=== PATIENT | male | born 1935 | race Caucasian/White ===

== ENCOUNTER 2017-01-11 12:15 | Emergency (ER) | payer OTHER ==
[~2017-01-11] VITALS: Ht 177.8 cm; Wt 91.2 kg
[~2017-01-11 12:15] MED LIST: AMLO-110 PO; ASPI-435 PO; CARB25TA12 PO; FURO-85 PO; HMLI SC; INSUINJ12 SC; ISOS60TA25 PO; MAGN400T6 PO; METO50TA7 PO; WARF4TAB PO
[2017-01-11 12:20] VITALS: TEMP 36.8; Ht 177.8 cm; Wt 91.2 kg
[2017-01-11] MEDS ORDERED: ACETAMINOPHEN 500 MG TAB PO STA (12:35)
--- NOTE | 2017-01-11 12:37 | EMERGENCY ROOM VISIT NOTE ---
History Report prepared by Zach: Eve Sun Under the Supervision of: Dr. Aneudy Mortensen M.D. First contact with patient: 12:27 Chief Complaint: HEAD PAIN Stated Complaint: SEVERE HEADACHE/DIZZY History of Present Illness The patient is an 81 year old male who presents to the Emergency Room with complaints of a persistent headache that started when he woke up this morning. He is accompanied by his son. The patient admits to tinnitus and reports he woke up feeling dizzy. He has experienced tinnitus for "years" and notes it keeps him awake at night. The headache is located "all over" his head and he rates his pain as an 8/10. He thought perhaps the headache was cardiac related, so he took 1 Nitroglycerin, but it provided no relief. He denies any changes in vision. He denies any recent fevers or chills. The patient admits to a constant tremor in his left face and right arm due to a history of Parkinson's and states they are unchanged. He denies any recent difficulty ambulating or increased weakness. He denies any abdominal pain or pain or swelling in his legs. The patient is on daily blood thinners. Source of History: patient Onset: Earlier this morning Position: head Symptom Intensity: 8/10 Timing: other (persistent) Modifying Factors (Relieving): other (Nitroglycerin provided no relief) Associated Symptoms: No abdominal pain, No chills, No fevers, No weakness Review of Systems All systems have been listed, reviewed, and are negative other than those previously mentioned. Please see Additional Medical History Sheet. Past Medical & Surgical Medical Problems: (1) Diabetes mellitus (2) Heart disease (3) Hypertension (4) Parkinson's disease Surgical Problems: (1) History of cholecystectomy Family History Diabetes mellitus Heart disease Hypertension Social History Smoking Status: Never Smoker Alcohol Use: occasionally Drug Use: none Marital Status: Housing Status: lives with family Occupation Status: retired Current/Historical Medications Scheduled Amlodipine (Norvasc), 5 MG PO DAILY Aspirin (Aspirin 81), 81 MG PO DAILY Carbidopa/Levodopa (Sinemet 25MG/100MG), 1.5 TAB PO QID Furosemide (Lasix), 10 MG PO QAM Insulin Detemir (Levemir Flextouch), 22 UNITS SC HS Insulin Lispro (Human) (Humalog), 10 UNITS SC UD Isosorbide Mononitrate Ext Rel (Imdur Ext Rel), 120 MG PO QAM Magnesium Oxide (Mag-Ox), 400 MG PO DAILY Metoprolol Succ (Toprol Xl) (Toprol-Xl), 50 MG PO QAM Nitroglycerin (Nitrostat), 0.4 MG UT PRN Polyethylene Glycol 3350 (Miralax), 17 GM PO UD Triamcinolone Acet (Triamcinolone Acetonide), 1 APPLN TOP BID Warfarin Sodium (Coumadin), 1 TAB PO 4XWK Warfarin Sodium (Coumadin), 6 MG PO MWF Scheduled PRN Oxycodone Immediate Rel Tab (Roxicodone Ir), 1 TAB PO Q4H PRN for Severe Pain Allergies Coded Allergies: PETER Inhibitors (Verified Allergy, Unknown, UNK, 01/11/17) Physical Exam Vital Signs Date Time Temp Pulse Resp B/P Pulse Ox O2 Delivery O2 Flow Rate FiO2 01/11/17 15:53 60 12 132/72 93 01/11/17 15:00 60 01/11/17 14:55 93 Room Air 01/11/17 14:54 63 18 138/80 94 Room Air 01/11/17 12:20 36.8 66 22 132/80 93 Room Air Physical Exam GENERAL: Patient awake, alert, oriented x 3. Patient follows commands. Patient does not appear toxic. Patient is adequately hydrated and well- nourished. SKIN: No erythema, pallor, cyanosis or rash HEENT: Normal head, pupils equal, reactive to light and accommodation. Ears normal. Oral cavity and posterior pharynx appear normal. Neck: Scar on base of neck. Without adenopathy, no neck vein distention. LUNGS: Clear to auscultation. No wheezes, no rales, no rhonchi. HEART: No murmurs. No gallops. No rubs ABDOMEN: Vertical scar right sided abdomen from prior cholecystectomy. No masses, no rebound, no hepatomegaly or splenomegaly. EXTREMITIES: No signs of trauma. No pedal or pretibial edema. No calf or thigh tenderness. NEUROLOGIC: Left facial tremor. Resting tremor in right arm. Cranial nerves II -XII within normal limits. Medical Decision & Procedures ER Provider Diagnostic Interpretation: This X-Ray was reviewed and interpreted by myself and the radiologist. CHEST 2 VIEWS ROUTINE IMPRESSION: No acute cardiopulmonary findings. Electronically signed by: Corbin Vasquez M.D. 01/11/2017 2:[address] scan was reviewed and interpreted by the radiologist and reviewed by myself. CT OF THE HEAD WITHOUT CONTRAST IMPRESSION: No acute intracranial findings. Electronically signed by: Corbin Vasquez M.D. 01/11/2017 2:04 PM Laboratory Results 01/11/17 12:57 Red Blood Count 4.80, Mean Corpuscular Volume 87.3, Mean Corpuscular Hemoglobin 31.5, Mean Corpuscular Hemoglobin Concent 36.0, Mean Platelet Volume 9.9, Neutrophils (%) (Auto) 47.2, Lymphocytes (%) (Auto) 39.2, Monocytes (%) (Auto) 7.7, Eosinophils (%) (Auto) 4.7, Basophils (%) (Auto) 1.0, Neutrophils # (Auto) 1.90, Lymphocytes # (Auto) 1.58, Monocytes # (Auto) 0.31, Eosinophils # (Auto) 0.19, Basophils # (Auto) 0.04 01/11/17 12:57 Test 01/11/17 12:57 White Blood Count 4.03 K/uL (4.8-10.8) Red Blood Count 4.80 M/uL (4.7-6.1) Hemoglobin 15.1 g/dL (14.0-18.0) Hematocrit 41.9 % (42-52) Mean Corpuscular Volume 87.3 fL (80-100) Mean Corpuscular Hemoglobin 31.5 pg (25-34) Mean Corpuscular Hemoglobin Concent 36.0 g/dl (32-36) Platelet Count 142 K/uL (130-400) Mean Platelet Volume 9.9 fL (7.4-10.4) Neutrophils (%) (Auto) 47.2 % Lymphocytes (%) (Auto) 39.2 % Monocytes (%) (Auto) 7.7 % Eosinophils (%) (Auto) 4.7 % Basophils (%) (Auto) 1.0 % Neutrophils # (Auto) 1.90 K/uL (1.4-6.5) Lymphocytes # (Auto) 1.58 K/uL (1.2-3.4) Monocytes # (Auto) 0.31 K/uL (0.11-0.59) Eosinophils # (Auto) 0.19 K/uL (0-0.5) Basophils # (Auto) 0.04 K/uL (0-0.2) RDW Standard Deviation 41.2 fL (36.4-46.3) RDW Coefficient of Variation 12.8 % (11.5-14.5) Immature Granulocyte % (Auto) 0.2 % Immature Granulocyte # (Auto) 0.01 K/uL (0.00-0.02) Prothrombin Time 27.7 SECONDS (9.0-12.0) Prothromb Time International Ratio 2.5 (0.9-1.1) Anion Gap 7.0 mmol/L (3-11) Est Creatinine Clear Calc Drug Dose 71.9 ml/min Estimated GFR () 91.9 Estimated GFR (Non- 79.3 BUN/Creatinine Ratio 19.8 (10-20) Calcium Level 8.3 mg/dl (8.5-10.1) Total Bilirubin 0.4 mg/dl (0.2-1) Aspartate Amino Transf (AST/SGOT) 15 U/L (15-37) Alanine Aminotransferase (ALT/SGPT) 7 U/L (12-78) Alkaline Phosphatase 80 U/L (45-117) Total Protein 6.9 gm/dl (6.4-8.2) Albumin 3.1 gm/dl (3.4-5.0) Globulin 3.8 gm/dl (2.5-4.0) Albumin/Globulin Ratio 0.8 (0.9-2) Laboratory results as stated above per my review. Medications Administered Medications (Trade) Dose Ordered Sig/Jeremy Route Start Time Stop Time Status Last Admin Dose Admin Acetaminophen (Tylenol Tab) 1,000 mg NOW STAT PO 01/11/17 12:35 01/11/17 12:39 DC 01/11/17 13:16 1,000 MG Oxycodone HCl (Roxicodone Immediate Rel Tab) 5 mg NOW STAT PO 01/11/17 15:16 01/11/17 15:18 DC 01/11/17 15:33 5 MG ECG Indication: weakness Rate (beats per minute): 60 Rhythm: other (Atrial paced rhythm) Findings: no acute ischemic change, no ectopy ED Course 1230: Past medical records reviewed. The patient was evaluated in room C11. A complete history and physical examination was performed. 1235: Acetaminophen 1000 mg PO. 1516: Oxycodone HCl 5 mg PO. 1520: I reevaluated the patient. He is feeling well and resting comfortably. I discussed his results and discharge instructions and he verbalized complete understanding and agreement. Medical Decision The differential diagnoses considered include: TIA/CVA, subarachnoid bleed, migraine, tension, cluster or sinus headache, Meniere's disease, labyrinthitis, benign positional vertigo. Multiple labs, EKG and imaging were obtained. The patient has no evidence of meningitis or hemorrhagic stroke. Clinically he does not have stroke like symptoms. The patient has no evidence of infection. I do not think he has meningitis. The patient does have some tinnitus which is old. He has a headache which did improve with Tylenol. Near the end of his stay he said the headache was coming back. He was given 1 OxyIR. I believe the patient can safely return home. [place] Drug Monitoring Program Search Results: no issues identified Impression Primary Impression: Dizziness Additional Impressions: Headache Parkinson's disease Scribe Attestation The scribe's documentation has been prepared under my direction and personally reviewed by me in its entirety. I confirm that the note above accurately reflects all work, treatment, procedures, and medical decision making performed by me. Departure Information Dispostion Home / Self-Care Prescriptions Oxycodone Immediate Rel Tab (ROXICODONE IR) 5 Mg Tab 1 TAB PO Q4H Y for Severe Pain, #10 TAB Prov: Aneudy Mortensen M.D. 01/11/17 Referrals Emmanuel Aj (PCP) Patient Instructions My [facility] Additional Instructions 1 OxyIR every 4-6 hours as needed for moderate to severe headache. Do not drive or operate any machinery while taking OxyIR. Follow-up with your family physician this week. Return here sooner if your headache is getting worse. Problem Qualifiers
[2017-01-11 13:07] LABS: BASO ABS # 0.04 K/uL (0-0.2); COMPLETE YES; EOS % 4.7 %; HEMATOCRIT 41.9 % (42-52); IG% 0.2 %; LYMPH % 39.2 %; LYMPH ABS # 1.58 K/uL (1.2-3.4); MEAN CELL VOLUME 87.3 fL (80-100); MEAN CORPUSCULAR HEMOGLOBIN 31.5 pg (25-34); MEAN PLATELET VOLUME 9.9 fL (7.4-10.4); MONO % 7.7 %; NEUT % 47.2 %; PLATELET COUNT 142 K/uL (130-400); WHITE BLOOD COUNT 4.03 K/uL (4.8-10.8)
[2017-01-11 13:17] LABS: INR 2.5 (0.9-1.1); PROTHROMBIN TIME (PATIENT) 27.7 SECONDS (9.0-12.0)
[2017-01-11 13:23] LABS: BUN/CREATININE RATIO 19.8 (10-20); CALCIUM 8.3 mg/dl (8.5-10.1); CREATININE 0.9 mg/dl (0.60-1.40); POTASSIUM 3.9 mmol/L (3.5-5.1)
[2017-01-11 13:26] LABS: ALB/GLOB RATIO 0.8 (0.9-2)
[2017-01-11] MEDS ORDERED: INSU100I SC (13:27)
[2017-01-11] MEDS ORDERED: NITR0.4S UT (13:27)
[2017-01-11] MEDS ORDERED: ISOS120T5 PO (13:27)
[2017-01-11] MEDS ORDERED: POLY335019 PO (13:27)
[2017-01-11] MEDS ORDERED: TRMCR515 TOP (13:27)
[2017-01-11] MEDS ORDERED: INSU3INJ3 SC (13:27)
--- NOTE | 2017-01-11 14:05 | DIAGNOSTIC IMAGING REPORT ---
CT OF THE HEAD WITHOUT CONTRAST CLINICAL HISTORY: Headache. COMPARISON STUDY: No previous studies for comparison. CT DOSE: 884.08 mGy.cm TECHNIQUE: Helical axial images of the head were obtained without IV contrast. Automated exposure control was utilized for the study. FINDINGS: No acute intracranial hemorrhage, midline shift or mass effect is present. Ventricular system is unremarkable for age. Basilar cisterns are patent. There are no extra-axial collections. There is mild atrophy and small vessel disease. There are no findings to suggest acute dural sinus thrombosis or acute territorial infarct. There are no significant calvarial abnormalities. Visualized portions of the sinuses and mastoid air cells are clear. IMPRESSION: No acute intracranial findings. Electronically signed by: Corbin Vasquez M.D. 01/11/2017 2:04 PM Dictated Date/Time: 01/11/2017 2:01 PM
--- NOTE | 2017-01-11 14:26 | DIAGNOSTIC IMAGING REPORT ---
CHEST 2 VIEWS ROUTINE CLINICAL HISTORY: Headache. 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 Cardiomediastinal silhouette is stable. Widening of the right paratracheal stripe is unchanged. There is no evidence of pulmonary edema. There is no consolidation. No pneumothorax or pleural effusion is identified. IMPRESSION: No acute cardiopulmonary findings. Electronically signed by: Corbin Vasquez M.D. 01/11/2017 2:25 PM Dictated Date/Time: 01/11/2017 2:24 PM
[2017-01-11 14:55] VITALS: O2SAT 93
[2017-01-11] MEDS ORDERED: OXYCODONE HCL IR 5 MG TAB (IMMEDIATE RELEASE) PO STA (15:16)
[2017-01-11] MEDS ORDERED: OXYC1TAB3 PO (15:26)
[2017-01-11 15:53] VITALS: BP 132/72; PULSE 60; O2SAT 93
== END 2017-01-11 15:59 | disposition home or self-care (01) ==
LOC: C.EDB 12:16 → C.EDC 15:59
DX: R42 Dizziness and giddiness (principal); R51 Headache; G20 Parkinson's disease; E11.9 Type 2 diabetes mellitus without complications; I10 Essential (primary) hypertension; I51.9 Heart disease, unspecified; Z83.3 Family history of diabetes mellitus; Z82.49 Family history of ischemic heart disease and other diseases of the circulatory system; Z79.01 Long term (current) use of anticoagulants; Z79.4 Long term (current) use of insulin; Z79.02 Long term (current) use of antithrombotics/antiplatelets; Z79.899 Other long term (current) drug therapy